=== PATIENT | female | born 1940 | race Caucasian/White ===

== ENCOUNTER → 2020-04-06 16:22 | Outpatient (CLI) | payer MEDICARE, SELFPAY ==
[2020-04-06 16:53] LABS: Basophils % 0.5 % (0.1-2.0); Eosinophils # 0.2 K/mm3 (0.0-0.4); Eosinophils % 1.9 % (0.1-12.0); Hematocrit 37.3 % (37.0-47.0); Hemoglobin 12.3 g/dL (12.2-16.2); Lymphocytes # 3.5 K/mm3 (0.7-4.5); Lymphocytes % 40.2 % (10-50); Mean Corpuscular Hemoglobin 32.7 pg (27.0-31.2); Mean Corpuscular Volume 99.2 fl (81-99); Monocytes # 0.5 K/mm3 (0.1-1.0); Monocytes % 5.4 % (1.7-9.3); Neutrophils # 4.5 K/mm3 (1.8-7.8); Neutrophils % 51.9 % (37.0-80.0); Platelet Count 292 K/mm3 (142-424); Red Blood Count 3.76 M/mm3 (4.20-5.40); White Blood Count 8.7 K/mm3 (4.8-10.8)
[2020-04-06 17:11] LABS: Chloride 110 mmol/L (98-107); Potassium 3.8 mmoL/L (3.5-5.1); Sodium 142 mmol/L (136-145)
[2020-04-06 17:13] LABS: Alanine Aminotransferase 14 U/L (12-78); Aspartate Amino Transferase 24 U/L (14-36); Bilirubin,Unconjugated 0.4 mg/dL (0.0-1.1); Blood Urea Nitrogen 16 mg/dl (7-17); Estimated Glomerular Filt Rate 70 ml/min (>60); GFR (African American) 84 ML/MIN (>60)
[2020-04-06 17:14] LABS: Albumin Level 3.6 g/dl (3.5-5.0); Alkaline Phosphatase 67 U/L (38-126); Anion Gap 12.8 mEq/L (5-15); Bilirubin,Indirect 0.4 mg/dL (0.0-0.9); Bilirubin,Total 0.4 mg/dl (0.2-1.3); Calcium 9.2 mg/dl (8.4-10.2); Carbon Dioxide 23 mmol/L (22.0-30.0); Chol/HDL Ratio 2.6 (1-3.5); Cholesterol 166 mg/dl (140-200); Glucose 74 mg/dl (74-100); HDL Cholesterol 63 mg/dl (40-60); Total Protein,Serum 6.2 g/dl (6.3-8.2); Triglycerides 128 mg/dl (30-150); VLDL Cholesterol 26 mg/dL (0-40)
[2020-04-06 17:31] LABS: Free T4 (Free Thyroxine) 1.21 ng/dl (0.78-2.19)
[2020-04-06 17:44] LABS: Thyroid Stimulating Hormone 2.85 uIU/mL (0.465-4.68)
== END ==
PROVIDERS: Visit Provider Physician Assistant
DX: E78.5 Hyperlipidemia, unspecified (principal); I10 Essential (primary) hypertension; I20.9 Angina pectoris, unspecified; R06.00 Dyspnea, unspecified
CPT/HCPCS: 36415; 80048; 80061; 80076; 84439; 84443; 85025

== ENCOUNTER → 2020-04-15 11:46 | Outpatient (CLI) | payer MEDICARE, SELFPAY ==
--- NOTE | 2020-04-15 | CA_ITS ---
APPROVED REPORT Exam: Pharmacologic Technologist: Su Valdez, Ht: 5 ft 8 in Wt: 146 lbs BSA: 1.79 m2 HR: 56 bpm BP: 143/70 mmHg Rhythm: NSR Medical History Medical History: HTN Medications: Omeprazole,,,,, Levothyroxine,,,,, Losartan,,,,, TopIRAMATE,,,,, KCL,,,,, Famotidine,,,,, ONdanESETRAN,,,,, Allergies: NKA Cardiac Risk Factors: HTN, FHX of CAD Stress Test Details Test: LEXISCAN HR Resting HR: 76 bpm Max Heart Rate (APMHR): 143 bpm Max HR Achieved: 91 bpm Target HR (85% APMHR): 121 bpm % of APMHR: 63 Recovery HR: 69 bpm BP Resting BP: 143.0/70.0 mmHg Max BP: 151.0/77.0 mmHg Recovery BP: 146.0/66.0 mmHg ECG Resting ECG: NSR Clinical Reason for Termination: Completed Protocol Exercise duration: 04:26 min Highest Stage Achieved: Exercise capacity: 1.0 METs Stress ECG Conclusion DURING INFUSION OF LEXISCAN PATIENT HAD NO SYMPTOMS. OCCASIONAL PVC. <1.5MM ST SEGMENT CHANGES. NON-DIAGNOSTIC. Test Summary REST . . . . . . . Sitting REST 12:38 . . 76 . 143/ 70 . . Stage 1 . . . . . . . Cardiolite injected Stage 1 01:00 . . 87 . . . . Stage 2 01:00 . . 87 . 143/ 75 . . Stage 3 01:00 . . 85 . 151/ 77 . . Stage 4 01:00 . . 73 . 148/ 74 . . Stage 4 01:26 . . 71 . 148/ 60 . Stop exercise at 04:26 RECOVERY 01:00 . . 69 . . . . RECOVERY 02:00 . . 68 . 146/ 66 . . RECOVERY 03:00 . . 68 . 146/ 66 . . RECOVERY 04:00 . . 67 . 143/ 70 . . RECOVERY 04:29 . . 68 . 142/ 66 . . Electronically signed by : Lucio Eugene, 04/16/2020 10:55:46
--- NOTE | 2020-04-15 11:50 | NM_ITS ---
APPROVED REPORT Exam: Nuclear Stress Test Indication: chest pain..SOA..palptations..syncope..fatigue Patient Location: Outpatient Stress Tech: Natalya Funez NM Tech:Mary Pastrana, ARRT, RT (R)(N) Ht: 5 ft 8 in Wt: 146 lbs Bra Size: 36c HR: 56 bpm BP: 143/70 mmHg BSA: 1.79 m2 BMI: 22.1 History: chest pain..SOA..palptations..syncope..fatigue Procedure: Patient received a 0.4 mg of intravenous Lexiscan, resting heart rate 56 bpm, resting blood pressure 143/70 mmHg, with Lexiscan maximum heart rate achived was 86 bpm which is Less than 85 % of the maximum predicted heart rate and blood pressure was 143/75 mmHg. With Lexiscan, patient denied any complaint of chest pain. Electrocardiogram Resting electrocardiogram showed sinus rhythm low voltage QRS complexes nonspecific ST-T changes, with Lexiscan there is less than 1.[address] segment depression noted from the baseline EKG. The EKG portion of the Lexiscan Myoview is nondiagnostic. Cardiac Stress and Resting SPECT Images: Cardiac Stress and Resting SPECT images were obtained using technetium 99m Myoview 30.4 mCi stress and 10.03 mCi at rest. Gated SPECT for the analysis of segmental wall motion and calculation of the ejection fraction also done. Cardiac stress and resting SPECT images show a mild fixed defect in the anterior wall with normal contractility on gated SPECT is likely secondary to soft tissue attenuation, no reversible ischemia seen. Computer derived ejection fraction is 58% with no regional wall motion abnormality, right ventricle is normal size and contractility. Conclusion: 1. The EKG portion of the Lexiscan Myoview is nondiagnostic. 2. No scintigraphic evidence of reversible ischemia seen, computer derived ejection fraction 58% with no regional wall motion abnormality, right ventricle is normal size and contractility. 3. Likely normal Lexiscan Myoview study. Electronically signed by : Lucio Eugene, 04/16/2020 10:59:02
--- NOTE | 2020-04-15 11:50 | CA_ITS ---
APPROVED REPORT EXAM: Comprehensive 2D, Doppler, and color-flow Echocardiogram Enterprise Resource Planner: Tari Banegas RVT Ht: 5 ft 8 in Wt: 146lbs BSA: 1.79 BP: 141/70 mmHg Indications: CP,CAD,SOA,HTN,HLD 2D Dimensions LVOT 1.93 cm (M/F) 1.5-2.5 M-Mode Dimensions RVDd 3.14 cm (0.9-2.6) LVDd 5.53 cm (3.5-5.7) LVDs 3.64 cm (3.5-5.7) IVSd 0.72 cm (0.6-1.1) PWd 0.72 cm (0.6-1.1) EF (Teich) 62.60% FS 34.20% EDV (Teich) 149.30 mL ESV (Teich) 55.90 mL LV Diastology E/A Ratio 0.69 Mitral Valve MV A Velocity 69.00 (40-130 cm/s) Left Ventricle Left atrium is mildly enlarged, left ventricle is normal size, mild concentric left ventricular hypertrophy, visually estimated ejection fraction 55% with no regional wall motion abnormality, grade 1 diastolic dysfunction seen without tissue Doppler evidence of raise left atrial pressure. Right Ventricle Right atrium and right ventricular normal size and contractility. Aortic Valve Aortic valve is thickened and calcified without aortic stenosis, there is trace aortic insufficiency. Mitral Valve Mitral valve is grossly normal, there is mild mitral regurgitation. Tricuspid Valve Tricuspid valve is grossly normal, there is mild tricuspid regurgitation, tricuspid regurgitation jet velocity is inadequate for calculation of the right ventricular systolic pressure. Pulmonic Valve Pulmonic valve is poorly visualized. Great Vessels Aortic root is normal size. Pericardium No significant pericardial effusion noted. Conclusion 1. Mildly enlarged left atrium, normal left ventricular size, mild concentric left ventricular hypertrophy, visually estimated ejection fraction 55% with no regional wall motion abnormality, grade 1 diastolic dysfunction seen without tissue Doppler evidence of raise left atrial pressure. 2. Thickened and calcified aortic valve without aortic stenosis, there is trace aortic insufficiency. 3. Mild mitral and tricuspid regurgitation. 4. No significant pericardial effusion noted. Electronically signed by : Lucio Eugene, 04/16/2020 13:26:20
--- NOTE | 2020-04-15 12:26 | HMH.ITSHM ---
Current Home Medications as stated by this patient Candace Dowd or communications representative. []topiramate POTASSIUM ONDANSETRON OMEPRAZOLE METOPROLOL LOSARTAN LEVOTHYROXINE FUROSEMIDE FAMOTIDINE ASA
== END ==
PROVIDERS: Visit Provider Physician Assistant
DX: R07.9 Chest pain, unspecified (principal); E78.5 Hyperlipidemia, unspecified; I10 Essential (primary) hypertension; I20.9 Angina pectoris, unspecified; I25.10 Atherosclerotic heart disease of native coronary artery without angina pectoris; R06.00 Dyspnea, unspecified
CPT/HCPCS: 78452; 93017; 93306; A9502; J2785

== ENCOUNTER → 2020-04-20 15:29 | Outpatient (CLI) | payer MEDICARE, SELFPAY ==
[2020-04-20 16:30] LABS: Chloride 113 mmol/L (98-107); Potassium 4.1 mmoL/L (3.5-5.1); Sodium 143 mmol/L (136-145)
[2020-04-20 16:33] LABS: Anion Gap 10.1 mEq/L (5-15); Blood Urea Nitrogen 22 mg/dl (7-17); Calcium 9.3 mg/dl (8.4-10.2); Carbon Dioxide 24 mmol/L (22.0-30.0); Estimated Glomerular Filt Rate 70 ml/min (>60); GFR (African American) 84 ML/MIN (>60); Glucose 107 mg/dl (74-100)
[2020-04-20 16:41] LABS: NT Pro Brain Natriuretic Pep. 499 pg/mL (0-450)
== END ==
PROVIDERS: Visit Provider Physician Assistant
DX: E78.5 Hyperlipidemia, unspecified (principal); I10 Essential (primary) hypertension; I25.118 Atherosclerotic heart disease of native coronary artery with other forms of angina pectoris; R06.00 Dyspnea, unspecified; R07.9 Chest pain, unspecified
CPT/HCPCS: 36415; 80048; 83880

== ENCOUNTER 2020-04-23 08:37 | Day surgery (SDC) | payer MEDICARE, SELFPAY ==
[2020-04-23] VITALS (11 sets, daily range): BP systolic 126–150; BP diastolic 55–72; PULSE 50–75; RESP 16; TEMP 36.7; O2SAT 98–100; BMI 22.1
--- NOTE | 2020-04-23 | IR_ITS ---
APPROVED REPORT Patient Location: Outpatient PROCEDURES Left heart catheterization Left ventriculogram Selective coronary angiogram INDICATION Recalcitrant angina pectoris Informed consent was obtained prior to the procedure. COMPLICATIONS None Estimated Blood Loss: less than 10ml TECHNIQUE One percent lidocaine used to anesthetize the right anterior aspect of the wrist. The right radial artery was accessed via the Seldinger technique. A 6 Syriac sheath was placed in the right radial artery. 2.5 mg of verapamil, 800 mcg of nitroglycerin, 1mg Lidocaine and 5000 U Heparin were given through the arterial sheath. The trap catheter was also used to perform left heart catheterization, left ventriculogram and selective coronary angiogram. At the end of the procedure the sheath was removed good hemostasis was achieved using Traclet band, patient was transferred to the postop holding area in stable condition. ANGIOGRAPHIC RESULTS The left main artery Normal The left anterior descending artery Has mild proximal and mid vessel 10% luminal irregularities The circumflex artery Is nondominant has mild 10% luminal irregularities The right coronary artery Is a dominant vessel and has mild proximal and mid vessel 10% luminal irregularities The PAVON ventriculogram reveals Normal 65% The left ventricular end-diastolic pressure 10 mmHg IMPRESSION Mild [id number] coronary disease as described above Normal ejection fraction Normal left ventricular end-diastolic pressure PLAN 1. Evaluation of noncardiac symptomatology Electronically signed by : Hector Bansal, 04/23/2020 11:58:13
[2020-04-23 09:27] LABS: Chloride 111 mmol/L (98-107)
[2020-04-23 09:28] LABS: Basophils # 0.1 K/mm3 (0-0.2); Basophils % 0.6 % (0.1-2.0); Eosinophils # 0.2 K/mm3 (0.0-0.4); Eosinophils % 2.8 % (0.1-12.0); Hematocrit 37.9 % (37.0-47.0); Hemoglobin 12.6 g/dL (12.2-16.2); Lymphocytes # 2.7 K/mm3 (0.7-4.5); Lymphocytes % 31.2 % (10-50); Mean Corpuscular HGB Conc 33.1 g/dL (31.8-35.4); Mean Corpuscular Hemoglobin 33.8 pg (27.0-31.2); Mean Corpuscular Volume 102.1 fl (81-99); Mean Platelet Volume 7.5 fl (7.4-10.4); Monocytes # 0.5 K/mm3 (0.1-1.0); Monocytes % 5.4 % (1.7-9.3); Neutrophils # 5.1 K/mm3 (1.8-7.8); Platelet Count 203 K/mm3 (142-424); Potassium 3.4 mmoL/L (3.5-5.1); Red Blood Count 3.71 M/mm3 (4.20-5.40); Red Cell Distribution Width 12.9 % (11.5-17.5); Sodium 143 mmol/L (136-145); White Blood Count 8.5 K/mm3 (4.8-10.8)
[2020-04-23 09:30] LABS: Blood Urea Nitrogen 18 mg/dl (7-17); Creatinine Clearance Estimated 49 mL/min (50-200); Estimated Glomerular Filt Rate 70 ml/min (>60); GFR (African American) 84 ML/MIN (>60)
[2020-04-23 09:31] LABS: Anion Gap 10.4 mEq/L (5-15); Calcium 9.3 mg/dl (8.4-10.2); Carbon Dioxide 25 mmol/L (22.0-30.0); Glucose 102 mg/dl (74-100)
[2020-04-23 10:03] LABS: Coronavirus 19 IgG Antibody Negative (Negative); Coronavirus 19 IgM Antibody Negative (Negative)
== END 2020-04-23 15:05 | disposition home or self-care (01) ==
LOC: CATHLAB 08:39
PROVIDERS: PCP Family Medicine; Visit Provider Internal Medicine
DX: I25.118 Atherosclerotic heart disease of native coronary artery with other forms of angina pectoris (principal); I10 Essential (primary) hypertension; E78.5 Hyperlipidemia, unspecified; E03.9 Hypothyroidism, unspecified; Z79.899 Other long term (current) drug therapy; Z79.82 Long term (current) use of aspirin
CPT/HCPCS: 80048; 85025; 86328; 93458; 99152; C1725; C1769; J1644; Q9967